=== PATIENT | male | born 1990 ===

== ENCOUNTER 2017-05-28 19:42 | Emergency (ER) | payer OTHER ==
[~2017-05-28] VITALS: Ht 172.7 cm; Wt 74.4 kg
--- NOTE | 2017-05-28 21:00 | ED PSYCHIATRIC COMPLAINT ---
History of Present Illness General Chief Complaint: Psychiatric Related Complaint Stated Complaint: SPEAK TO SOMEONE ABOUT STRESS -SI/HI Source: patient Exam Limitations: no limitations Vital Signs & Intake/Output Vital Signs & Intake/Output Vital Signs Date Time Temp Pulse Resp B/P B/P Pulse O2 O2 Flow FiO2 Mean Ox Delivery Rate 05/28 2249 98.1 94 19 139/86 100 Room Air 05/28 2001 98.2 100 18 145/91 99 Room Air Allergies Coded Allergies: peanut (THROAT SWELLING 05/28/17) Reconcile Medications Cholecalciferol (Vitamin D3) (Vitamin D) (Unknown Strength) CAPSULE (Unknown Dose) PO DAILY SUPPLEMENT (Reported) Cyanocobalamin (Vitamin B-12) (Unknown Strength) TABLET (Unknown Dose) PO DAILY SUPPLEMENT (Reported) Triage Note: PT ED REQUESTING TO SPEAK TO COUNSELOR. PT DENIES SI/HI. DENIES ETOH OR DRUGS, STATES DRINKS ALOT OF CAFEINE. PT STATES HE HOLD "A LOT OF EMOTIONS IN" Triage Nurses Notes Reviewed? yes Onset: Gradual Timing: recent history Severity: moderate HPI: Patient is a 26-year-old male who denies any IV drug abuse presenting to the emergency department with family with chief complaint of "emotional issues". Patient reports that he's had emotional issues recently and would like to talk to someone about them. Denies history of being hospitalized for any psychiatric illness in the past. Denies any nausea or vomiting fevers or chills chest pain or shortness of breath. No abdominal pain. Denies headaches. Denies any suicidal or homicidal ideation. Patient reluctant to elaborate on any details during interview. (LEONARD CADE) Past History Travel History Traveled to [place] past 21 day No Medical History Any Pertinent Medical History? see below for history Neurological: NONE EENT: NONE Cardiovascular: NONE Respiratory: NONE Gastrointestinal: NONE Hepatic: NONE Renal: NONE Musculoskeletal: NONE Psychiatric: NONE Endocrine: NONE Surgical History Surgical History: non-contributory Psychosocial History What is your primary language Belarusian Tobacco Use: Never used ETOH Use: denies use Illicit Drug Use: denies illicit drug use Family History Hx Contributory? No (LEONARD CADE) Review of Systems Review of Systems Constitutional: Reports: no symptoms. Comments Review of systems: See HPI, All other systems negative. Constitutional, no chills fever or weight loss HEENT: No visual changes no sore throat no congestion Cardiovascular: No chest pain ,palpitation , orthopnea or ankle swelling Skin, no jaundice no rashes Respiratory: No dyspnea cough sputum or hemoptysis GI: No nausea no vomiting Muscle skeletal: no back pain, no neck pain, Neurologic: No numbness no confusion NO HEADACHE Psych: INCREASED STRESSED Heme/endocrine: No bruising no bleeding no polyuria or polydipsia Immunology: No splenectomy or history of AIDS (LEONARD CADE) Physical Exam Physical Exam General Appearance: well developed/nourished, no apparent distress, alert, awake , comfortable Neurological/Psychiatric: oriented x 3 Comments: Well-developed well-nourished person in no acute distress HEENT: Atraumatic, normocephalic. Nose is atraumatic. Neck: Normal inspection Cardiovascular: Regular rate and rhythms no murmurs rubs or gallops, normal JVP Respiratory: Chest nontender. No respiratory distress.breath sounds clear to auscultation bilaterally Extremity: No edema Neuro: Alert oriented x3 Skin: No appreciable rash on exposed skin, skin is warm and dry. Psych: tearful, memory and judgment is normal. SAD PERSONS Done? patient not suicidal (LEONARD CADE) Progress Differential Diagnosis: MAJOR DEPRESSIVE DISORDER, GENERALIZED ANXIETY, POLYSUBSTANCE ABUSE, DEPRESSIVE DISORDER NOS, MOOD DISORDER Plan of Care: Orders Procedure Date/time Status ETHANOL 05/28 2035 Complete COMPREHENSIVE METABOLIC PANEL 05/28 2035 Complete CBC WITHOUT DIFFERENTIAL 05/28 2035 Complete ED CRISIS PSYCH CONSULT 05/28 2035 Active URINE DRUG SCREEN FOR ER ONLY 05/28 2017 Complete Laboratory Tests 05/28/172134: Serum Alcohol < 10.0 05/28/172134: Anion Gap 16, Estimated GFR > 60, BUN/Creatinine Ratio 18.2, Glucose 78, Calcium 10.6 H, Total Bilirubin 1.2, AST 29, ALT 34, Alkaline Phosphatase 75, Total Protein 8.7 H, Albumin 5.3 H, Globulin 3.4, Albumin/Globulin Ratio 1.6, CBC w Diff NO MAN DIFF REQ, RBC 5.46, MCV 83.9, MCH 27.0, RDW 12.9, MPV 9.4, Gran % 75.1, Lymphocytes % 18.5 L, Monocytes % 4.6, Eosinophils % 1.4, Basophils % 0.4 , Absolute Granulocytes 8.8 H, Absolute Lymphocytes 2.2, Absolute Monocytes 0.5 , Absolute Eosinophils 0.2, Absolute Basophils 0, PUBS MCHC 32.2 L, Urine Opiates Screen < 100.00, Methadone Screen 62, Barbiturate Screen < 60, Ur Phencyclidine Scrn < 6.00, Amphetamines Screen < 100, U Benzodiazepines Scrn < 85, Urine Cocaine Screen < 50, Urine Cannabis Screen < 5.00 Comments: Upon further questioning social media director is able to extract the patient uses Excedrin often to get side effects from similar. Crisis is recommending outpatient follow-up with IOP. Patient is not suicidal or homicidal ideation. Deemed not a harm to self or others. (LEONARD CADE) Departure Departure Time of Disposition: 2251 Disposition: HOME OR SELF CARE Condition: Stable Clinical Impression Primary Impression: Stimulant abuse Referrals: PATIENT HAS NO PRIMARY CARE DR (PCP/Family) Additional Instructions: follow up with recommendations made by crisis. call to make appt. return for worsening symptoms or concerns. stop using exerdrin, this may cause GI bleeding. Departure Forms: Customer Survey General Discharge Information (LEONARD CADE) PA/HORTICULTURE INSTRUCTOR Co-Sign Statement Statement: ED Attending supervision documentation- [] I saw and evaluated the patient. I have also reviewed all the pertinent lab results and diagnostic results. I agree with the findings and the plan of care as documented in the PA's/HORTICULTURE INSTRUCTOR's documentation. [X] I have reviewed the ED Record and agree with the PA's/HORTICULTURE INSTRUCTOR's documentation. [] Additions or exceptions (if any) to the PAs/HORTICULTURE INSTRUCTOR's note and plan are summarized below: [] (JELENA NORRIS DO
[2017-05-28 21:47] LABS: ABSOLUTE BASOPHIL COUNT 0 /CUMM (0.0-0.2); ABSOLUTE EOSINOPHIL COUNT 0.2 /CUMM (0.0-0.7); ABSOLUTE GRANULOCYTE CT 8.8 /CUMM (1.4-6.5); ABSOLUTE LYMPH COUNT 2.2 /CUMM (1.2-3.4); ABSOLUTE MONOCYTE COUNT 0.5 /CUMM (0.10-0.60); BASOPHIL % 0.4 % (0.0-2.0); EOSINOPHIL % 1.4 % (0-5); GRANULOCYTE % 75.1 % (42.2-75.2); HEMATOCRIT 45.8 % (42-52); MEAN CORPUSCULAR HGB CONC 32.2 G/DL (33.0-37.0); MEAN CORPUSCULAR VOLUME 83.9 FL (80.0-94.0); MEAN PLATELET VOLUME 9.4 FL (7.4-10.4); PLATELET COUNT 237 /CUMM (130-400); RBC DISTRIBUTION WIDTH 12.9 % (11.5-14.5); RED BLOOD CELL CT 5.46 /CUMM (4.70-6.10); WHITE BLOOD CELL COUNT 11.8 /CUMM (4.8-10.8)
[2017-05-28] MEDS ORDERED: VITAMIN D2000 UNIT PO (21:56)
[2017-05-28] MEDS ORDERED: VITAMIN B-121000 MC3 PO (21:56)
[2017-05-28 22:49] VITALS: BP 139/86
--- NOTE | 2017-05-28 23:28 | ED PSYCH CRISIS CONSULTATION ---
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 Pt was seen by a Psychiatristy in and prescribed Vyvanse for ADHD. No treatment history since. Pt has a BA in Psychology from [employer] and recently finished 1st yr of MA in Clinical Psych Program at [employer]. 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 Reported concern is pt presenting with increased agitation and engaging in paranoid, irrational thought inability to sleep and decreased appetite. Pt denies SI/HI. Denies AH/VH. Pt denies etoh and other substance use. Pt is alert, soft spoken, appearing somewhat embarrassed about situation resulting in need for ED evaluation. Pt denies depression stating he is generally content. Pt is aware family is concerned and expressed willingness to engage in outpatient treatment. Patient's Address: [address] [place] [address] Other Phone Number: Who Do You Live With? Family (parents a 2 siblings (23,18)) Family/Informants Interviewed: collateral provided by parents Margo and Edd . Parents are concerned that pt is abusing mother's medications and has been presenting as more agitated irrational and bizarre. They don't believe pt is a safety risk to self or others but want like him to engage in outpatient treatment. Allergies - Coded Allergies: peanut (THROAT SWELLING 05/28/17) Current Medications - Scheduled Medications Cholecalciferol (Vitamin D3) (Vitamin D) (Unknown Strength) CAPSULE (Unknown Dose) PO DAILY SUPPLEMENT (Reported) Entered as Reported by DEANGELO ZUNIGA on 05/28/172155 Cyanocobalamin (Vitamin B-12) (Unknown Strength) TABLET (Unknown Dose) PO DAILY SUPPLEMENT (Reported) Entered as Reported by DEANGELO ZUNIGA on 05/28/172155 Laboratory Results: Laboratory Tests 05/28/172134: Serum Alcohol < 10.0 05/28/172134: Anion Gap 16, Estimated GFR > 60, BUN/Creatinine Ratio 18.2, Glucose 78, Calcium 10.6 H, Total Bilirubin 1.2, AST 29, ALT 34, Alkaline Phosphatase 75, Total Protein 8.7 H, Albumin 5.3 H, Globulin 3.4, Albumin/Globulin Ratio 1.6, CBC w Diff NO MAN DIFF REQ, RBC 5.46, MCV 83.9, MCH 27.0, RDW 12.9, MPV 9.4, Gran % 75.1, Lymphocytes % 18.5 L, Monocytes % 4.6, Eosinophils % 1.4, Basophils % 0.4 , Absolute Granulocytes 8.8 H, Absolute Lymphocytes 2.2, Absolute Monocytes 0.5 , Absolute Eosinophils 0.2, Absolute Basophils 0, PUBS MCHC 32.2 L, Urine Opiates Screen < 100.00, Methadone Screen 62, Barbiturate Screen < 60, Ur Phencyclidine Scrn < 6.00, Amphetamines Screen < 100, U Benzodiazepines Scrn < 85, Urine Cocaine Screen < 50, Urine Cannabis Screen < 5.00 Past History Past Medical History Neurological: NONE EENT: NONE Cardiovascular: NONE Respiratory: NONE Gastrointestinal: NONE Hepatic: NONE Renal: NONE Musculoskeletal: NONE Psychiatric: NONE Endocrine: NONE Past Surgical History Surgical History: non-contributory Psychosocial History Strengths/Capabilities: BA Psychology; Recently finished 1 yr MA Clinical Psychology at [employer]; 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 Psychiatric Treatment History Psych Treatment Psychiatric Treatment Yes Inpatient Treatment No Outpatient Treatment Yes Location of Treatment [facility] Reason for Treatment self-esteem issues Dates of Treatment high school Response to Treatment improved grades Diagnosis by History: ADHD Substance Use/Abuse History Drug Use/Abuse Substances Used/Abused Yes Substance Used/Abused Other (list in comments) (excedrin migraine pills) Last Used this morning How much used/taken 3 excedrin migraine pills How often 3-4 days/wk (before going to work) Substance Abuse Treatment Substance Abuse Treatment Past Substance Abuse [place] No Inpatient Treatment No Outpatient Treatment No Comments: reports taking excedrin migraine pills before work to stay awake and relieve boredom of job Current Mental Status Mental Status Orientation: Person, Place, Situation Affect: Flat Speech: WNL Neuro-vegetative: Appetite Decreased, Sleep Disturbance Appearance Appearance- Dress/Hygiene: well groomed. jeans and tshirt, glasses. friendly; respectful and engaged. Behaviors Thought Process: WNL Thought Content: WNL Memory: WNL Insight: WNL SI/HI Risk Assessment Past Suicidal Ideation/Attempts No Current Suicidal Ideation/Att No Past Homicidal Ideation/Att: No Current Homicidal Ideation/Attempts No Degree of Intent: None Gravely Disabled: Poor Judgment Risk Factors: substance abuse, poor impulse control, male Lethality Ratin (mild) PTSD Checklist PTSD Done? 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 Pt also reports no appetite and difficulty getting to sleep. Departure Disposition Psych Medical Clearance Date: 05/28/17 Medically Cleared at: 2200 Time Started: 2204 Time Ended: 2244 Psychiatrist Consulted: Pelon Cooper MD Date Disposition Established: 05/28/17 Time Disposition Established: 2249 Plan for Disposition - Modality: Outpatient Facility: [facility] Rationale for Disposition: Pt reports problem stimulant use and related agitation and family stress.Denies SI/HI. Denies AH/VH. Pt reports interest/willingness to engage in outpatient treatment. Additional Instructions: Pt and family will contact [facility] in the morning to schedule an intake. Referrals PATIENT HAS NO PRIMARY CARE DR (PCP/Family)
--- NOTE | 2017-05-30 13:12 | OP PSYCH INCIDENTAL NOTE ---
OPS Incidental Note Details: Patient's mother called OPS office today and asked typing secretary to make an appointment for patient. Patient had been referred to OPS from Crisis on 05/28. Patient's mother told typing secretary that her son did not want to make the appointment. Clinician returned call to number provided, and left a message to the effect that relative to HIPPA and patient's age, clinician would need to speak with patient directly. A callback number was provided for patient to call for further conversation with clinician, if he chooses to do so.
== END 2017-05-28 23:01 ==
LOC: ERH 19:42
PROVIDERS: Physician Assistant
DX: F15.10 Other stimulant abuse, uncomplicated (principal)
CPT/HCPCS: 80307; G0463; G0480